=== PATIENT | female | born 1960 | race Caucasian/White ===

== ENCOUNTER 2022-07-20 13:29 | Inpatient (IN) | payer MEDICARE, OTHER ==
[2022-07-20] VITALS (21 sets, daily range): BP systolic 47–171; BP diastolic 27–114
[~2022-07-20] VITALS: Ht 167.6 cm; Wt 73.9 kg
--- NOTE | 2022-07-20 13:50 | NUR ---
BLOOD DRAWN AND SENT TO LAB
[2022-07-20] MEDS ORDERED: methylPREDNISolone SOD SUCC 125 MG/2ML VIAL IV ONE (14:00)
[2022-07-20] MEDS ORDERED: ALBUTEROL FS 2.5 MG/3 ML VIAL.NEB CONTNEB ONE (14:00)
[2022-07-20] MEDS ORDERED: Magnesium 1GM/D5W 100ML PREMIX 200 ML IV ONE (14:00)
[2022-07-20] MEDS ORDERED: IPRATROPIUM NEB FS 0.5 MG/2.5 ML AMPUL.NEB NEB ONE (14:00)
[2022-07-20] MEDS ORDERED: methylPREDNISolone SOD SUCC 125 MG/2ML VIAL ONE (14:18)
--- NOTE | 2022-07-20 14:18 | NUR ---
MOVE SHEET SUBMITTED.
[2022-07-20] MEDS ORDERED: Magnesium 1GM/D5W 100ML PREMIX 100 ML IV ONE ×2 (14:20→14:29)
[2022-07-20] MEDS ORDERED: MAGN400O6 PO (14:23)
[2022-07-20] MEDS ORDERED: ASPI-1420 PO (14:23)
[2022-07-20] MEDS ORDERED: MULT-447 PO (14:23)
[2022-07-20] MEDS ORDERED: BISA10SU11 RC (14:23)
[2022-07-20] MEDS ORDERED: ATOR40TA PO (14:23)
[2022-07-20] MEDS ORDERED: NA P133E RC (14:23)
[2022-07-20] MEDS ORDERED: POLY15DR40 EACHEYE (14:23)
[2022-07-20] MEDS ORDERED: DOCU-141 PO (14:23)
[2022-07-20] MEDS ORDERED: ASCO-495 PO (14:23)
[2022-07-20] MEDS ORDERED: ARIP15TA3 PO (14:23)
[2022-07-20] MEDS ORDERED: ALBUTEROL FS 2.5 MG/3 ML VIAL.NEB ONE (14:28)
[2022-07-20] MEDS ORDERED: IPRATROPIUM NEB FS 0.5 MG/2.5 ML AMPUL.NEB ONE (14:29)
--- NOTE | 2022-07-20 14:30 | NUR ---
X-RAY TECH AT BEDSIDE
[2022-07-20 14:44] LABS: ABG BASE EXCESS 5.1 mmol/L; ABG PCO2 90.3 mmHg (35.0-45.0); ABG PH 7.224 (7.350-7.450); ABG PO2 212.8 mmHg (75.0-100.0); COHb 1.3 % (0.5-1.5); MetHb 0.5 % (0.0-1.5); O2Hb 97.4 % (94.0-97.0); SITE, ABG Right Radial; VENT MODE, BG 12L NRB
[2022-07-20 14:52] LABS: BASOPHILS % (AUTO) 0.2 % (0.0-2.0); HEMATOCRIT 42 % (33-45); HEMOGLOBIN 14.5 g/dL (11.5-14.8); LYMPHOCYTES # (AUTO) 0.9 K/uL (0.8-4.8); LYMPHOCYTES % (AUTO) 11.4 % (20.0-44.0); MEAN CORPUSCULAR HGB CONC 34 g/dl (31.0-36.0); MEAN CORPUSCULAR VOLUME 84 fL (82-100); MONOCYTES # (AUTO) 0.6 K/uL (0.1-1.30); MONOCYTES % (AUTO) 7.1 % (2.0-12.0); NEUTROPHILS # (AUTO) 6.6 K/uL (1.8-8.9); NEUTROPHILS % (AUTO) 81.3 % (43.0-81.0); PLATELET COUNT (AUTO) 194 K/uL (150-450); RED BLOOD CELL COUNT(AUTO) 5.02 MIL/uL (4.0-5.2); WHITE BLOOD COUNT (AUTO) 8.2 K/uL (4.3-11.0)
--- NOTE | 2022-07-20 14:58 | NUR ---
SWAB FOR COVID19 SENT TO LAB
--- NOTE | 2022-07-20 15:00 | NUR ---
Patient agitated, not able to follow commands.
--- NOTE | 2022-07-20 15:09 | NUR ---
RT at bedside setting up BIPAP for patient.
--- NOTE | 2022-07-20 15:20 | NUR ---
Patient AO-2-3, more relaxed, able to follow simple commands. Patietn sating at 100% with BIPAP.
[2022-07-20 15:29] LABS: ALANINE AMINOTRANSFERASE 41 U/L (12-78); ALBUMIN 3.8 g/dL (3.4-5.0); ALKALINE PHOSPHATASE 98 U/L (46-116); ASPARTATE AMINOTRANSFERASE 35 U/L (15-37); BILIRUBIN,DIRECT 0.1 mg/dL (0.0-0.2); BILIRUBIN,TOTAL 0.5 mg/dL (0.2-1.0); CALCIUM, SERUM 8.1 mg/dL (8.5-10.1); CARBON DIOXIDE 37 mmol/L (21-32); CHLORIDE 83 mmol/L (98-107); CREATININE 0.4 mg/dL (0.6-1.3); GLUCOSE 131 mg/dL (74-106); POTASSIUM 3.9 mmol/L (3.5-5.1); SODIUM SERUM 121 mmol/L (136-145); TOTAL PROTEIN, SERUM 7.9 g/dL (6.4-8.2); UREA NITROGEN, BLOOD 10 mg/dL (7-18)
[2022-07-20 16:21] LABS: SITE, VBG Right Radial; VBG COHb 1.3 %; VBG MetHb 0.3 %; VBG O2Hb 97.7 %; VENT MODE, VBG 18/8 18 50%
--- NOTE | 2022-07-20 16:47 | NUR ---
GOT BED 256, ADMITTING MADE AWARE
[2022-07-20] MEDS ORDERED: ONDANSETRON HCL/PF 4 MG/2 ML VIAL IVP PRN (17:00)
[2022-07-20] MEDS ORDERED: ACETAMINOPHEN 325 MG TABLET PO PRN (17:00)
[2022-07-20] MEDS ORDERED: ALBUTEROL FS 2.5 MG/0.5 ML VIAL.NEB NEB PRN (17:00)
[2022-07-20] MEDS ORDERED: MORPHINE SULFATE INJ 2 MG/ML DISP.SYRIN IV PRN (17:00)
--- NOTE | 2022-07-20 17:05 | NUR ---
Report given to Mika FREDERICK/ICU, patient cleared to go to room 256
[2022-07-20 17:52] LABS: ABG BASE EXCESS 3.2 mmol/L; ABG PCO2 90.3 mmHg (35.0-45.0); ABG PO2 82.1 mmHg (75.0-100.0); COHb 0.5 % (0.5-1.5); MetHb 0.4 % (0.0-1.5); O2Hb 93.5 % (94.0-97.0); SITE, ABG Left Brachial; VENT MODE, BG ST 18/8 18 70%
--- NOTE | 2022-07-20 17:55 | NUR ---
Patient AOx4, sitting up, follows commands, requesting a bedpan.
--- NOTE | 2022-07-20 18:57 | NUR ---
RN NOTES PT ADMITTED TO BED 256 ICU. REPORT GIVEN BY ELIZABETH FREDERICK FROM ED. PT BROUGHT IN BY YONIS. SKIN IS INTACT. PT ON BIPAP DUE TO ASTHMA EXACERBATION. CO2 LEVELS ARE TRENDING UP, DR. DOMINGUEZ AWARE. PT TOLERATING BIPAP WELL. BED IN LOW POSITION, SIDERAILS UP, AND IN SEMI-RODRIGEZ POSITION. PT CURRENTLY IN BED AND LOOKS COMFORTABLE. NO FURTHER NEEDS AT THIS TIME.
--- NOTE | 2022-07-20 19:10 | NUR ---
RN OPENING NOTES PATIENT RECEIVED IN BED, AWAKE, A/O X 1. PT ON BIPAP WITH SETTING OF 18/8, RATE -22, FIO2- 60%, SATING AT 92%. NO SOB NOTED, NO S/S DISTRESS, AFEBRILE, DENIES ANY PAIN. NOTED WITH RIGHT FOREARM #20, LEFT FOREARM #20 PERIPHERAL LINE, FLUSHED WITH NS, NO S/S OF INFILTRATION NOTED. ALL SAFETY PRECAUTION PROVIDED. BED IN LOWEST POSITION, LOCKED. CALL LIGHT WITHIN REACH, SIDE RAILS UP X3. WILL CONTINUE TO MONITOR.
--- NOTE | 2022-07-20 19:20 | NUR ---
RN NOTES PT LOOKS COMFORTABLE, ALL DUE MEDICATIONS GIVEN, NO COMPLAINT OF PAIN AT THIS TIME. REPORT GIVEN TO CORINNA FREDERICK FOR CONTINUATION OF CARE.
[2022-07-20] MEDS: IPRATROPIUM NEB FS 0.5 MG/2.5 ML AMPUL.NEB NEB SCH (19:52)
[2022-07-20] MEDS: ALBUTEROL FS 2.5 MG/3 ML VIAL.NEB NEB SCH (19:52)
[2022-07-20] MEDS: methylPREDNISolone SOD SUCC 125 MG/2ML VIAL IV SCH (21:07)
[2022-07-20] MEDS: HEPARIN SODIUM, PORCINE 5000 UNITS/1 ML VIAL SQ SCH (21:09)
[2022-07-20 21:16] LABS: ABG OXYGEN SATURATION 94.1 % (92.0-98.5); ABG PCO2 99.4 mmHg (35.0-45.0); ABG PH 7.182 (7.350-7.450); ABG PO2 81.7 mmHg (75.0-100.0); AaDO2 236.8 mmHg; MetHb 0.3 % (0.0-1.5); O2Hb 92.9 % (94.0-97.0); SITE, ABG Left Radial
--- NOTE | 2022-07-20 21:19 | NUR ---
ABG DONE RN NOTIFIED
--- NOTE | 2022-07-20 21:30 | NUR ---
RN NOTES NOTIFIED HALIMA MCCLENDON REGARDING PATIENT LATEST ABG, PER ZIGGY SHE WILL SEE THE PATIENT.
--- NOTE | 2022-07-20 21:50 | NUR ---
RN NOTES HALIMA MCCLENDON AT BEDSIDE ASSESSED THE PATIENT, PT. IS NOT WAKING UP, STERNAL RUB DONE OPEN EYES A LITTLE BIT. ORDER TO INTUBATE THE PATIENT. ER DOCTOR NOTIFIED BY HER. WAITING FOR ER
[2022-07-20] MEDS ORDERED: PROPOFOL 10MG/ML 50ML 50 ML IV PRN (22:00)
--- NOTE | 2022-07-20 22:16 | NUR ---
RN NOTES @221 ETOMIDATE 10MG AND ROCURONIUM 100MG GIVEN BY CHARGE NURSE RADHA, @7512 PATIENT IS ORALLY INTUBATED BY DR. PENALOZA, SIZE 7.5 AND 23CM BY THE LIPS WITH VENT SETTING RATE- 22, TIDAL VOLUME- 450, FIO2-100%, PEEP-0. PATIENT NOTED WITH LOW SBP ON 70'S, DNP ZIGGY MCCLENDON ORDERED TO START NEOSYNEPHRINE NOTED AND CARRIED OUT.
[2022-07-20] MEDS ORDERED: PROPOFOL 100 ML ONE (22:22)
--- NOTE | 2022-07-20 22:24 | NUR ---
PT ORALLY INTUBATED BY DR LARES. 7.5 ETT SECURED AT 23CM AT THE LIP. COLOR CHANGE ON CO2 DETECTOR, BILAT BREATH SOUNDS. YVES SETTINGS AC 22, 450, 100%.
[2022-07-20] MEDS ORDERED: PHENYLEPHRINE 100 MG in IV NS 0.9% 240 ML IV PRN (22:30)
--- NOTE | 2022-07-20 22:35 | NUR ---
RN NOTES NOTIFIED PATIENT FATHER MONIKA REGARDING PATIENT LATEST STATUS, FAMILY MEMBER APPRECIATED THE CALL.
[2022-07-20] MEDS ORDERED: PHENYLEPHRINE 10 MG/ML VIAL ONE (22:37)
--- NOTE | 2022-07-20 23:00 | NUR ---
RN NOTES CARPENTER CATHETER INSERTED ASEPTICALLY, 16FR X 10CC. PROCEDURE TOLERATED WELL. DRAINING CLEAR YELLOW URINE VIA GRAVITY.
[2022-07-21] VITALS (93 sets, daily range): BP systolic 74–128; BP diastolic 47–76
[2022-07-21] MEDS: PROPOFOL 100 ML IV PRN ×6 (00:29→21:44)
--- NOTE | 2022-07-21 00:30 | NUR ---
RN/ICU- NOW PT. STARTED WAKING UP WITH TOYIN. SOFT WRIST RESTRAINTS ON,EXTREMELY AGITATED,TRYING TO SIT UP IN BED,ATTEMPTING TO RELEASE RESTRAINTS. DOES NOT FOLLOW VERBAL COMMANDS, DIPRIVAN DRIP STARTED AT 5MCG/KG/MIN. PER PROTOCOL.WILL CONTINUE TO TITRATE PER PROTOCOL.
--- NOTE | 2022-07-21 01:00 | NUR ---
RN NOTES NOTIFIED HALIMA MCCLENDON REGARDING LATEST ABG RESULT, PER ZIGGY TELL RT TO TITRATE FIO2, RT NOTIFIED FIO2 DECREASED TO 50%. PATIENT TOLERATED WELL.
[2022-07-21] MEDS: IPRATROPIUM NEB FS 0.5 MG/2.5 ML AMPUL.NEB NEB SCH ×6 (01:15→19:50)
[2022-07-21] MEDS: ALBUTEROL FS 2.5 MG/3 ML VIAL.NEB NEB SCH ×6 (01:15→19:50)
[2022-07-21] MEDS ORDERED: IV NS 0.9% 250 ML IV PRN (02:30)
[2022-07-21 02:52] LABS: BASOPHILS # (AUTO) 0.2 K/uL (0.0-0.2); EOSINOPHILS % (AUTO) 0.9 % (0.0-6.0); HEMATOCRIT 42 % (33-45); HEMOGLOBIN 13.9 g/dL (11.5-14.8); LYMPHOCYTES # (AUTO) 0.2 K/uL (0.8-4.8); LYMPHOCYTES % (AUTO) 5.2 % (20.0-44.0); MEAN CORPUSCULAR HGB CONC 33 g/dl (31.0-36.0); MEAN CORPUSCULAR VOLUME 85 fL (82-100); MONOCYTES # (AUTO) 0.1 K/uL (0.1-1.30); NEUTROPHILS # (AUTO) 3.8 K/uL (1.8-8.9); NEUTROPHILS % (AUTO) 85.8 % (43.0-81.0); PLATELET COUNT (AUTO) 212 K/uL (150-450); RED BLOOD CELL COUNT(AUTO) 4.91 MIL/uL (4.0-5.2); WHITE BLOOD COUNT (AUTO) 4.5 K/uL (4.3-11.0)
[2022-07-21 03:20] LABS: BASOPHILS % (AUTO) 5.1 % (0.0-2.0)
[2022-07-21 03:22] LABS: BILIRUBIN,TOTAL 0.5 mg/dL (0.2-1.0); CALCIUM, SERUM 8.6 mg/dL (8.5-10.1); CREATININE 0.9 mg/dL (0.6-1.3); PHOSPHORUS 4.9 mg/dL (2.5-4.9); POTASSIUM 3.8 mmol/L (3.5-5.1)
[2022-07-21 03:23] LABS: ALBUMIN 3.3 g/dL (3.4-5.0); MAGNESIUM 2.5 mg/dL (1.8-2.4); TOTAL PROTEIN, SERUM 7.1 g/dL (6.4-8.2)
[2022-07-21] MEDS: methylPREDNISolone SOD SUCC 125 MG/2ML VIAL IV SCH ×3 (05:22→20:13)
--- NOTE | 2022-07-21 07:43 | NUR ---
RN NOTES D/C PT'S DIET ORDER AND PLACED PT NPO AT THIS TIME DUE TO PT BEING INTUBATED.
[2022-07-21] MEDS ORDERED: ROCURONIUM BROMIDE 50 MG/5 ML IV ONE (08:32)
[2022-07-21] MEDS ORDERED: ETOMIDATE 2 MG/ML VIAL IV ONE (08:32)
[2022-07-21] MEDS: HEPARIN SODIUM, PORCINE 5000 UNITS/1 ML VIAL SQ SCH ×2 (08:47→20:14)
--- NOTE | 2022-07-21 09:15 | NUR ---
RN NOTES PT AGITATED. PER DR. DOMINGUEZ OK TO TITRATE TO 100 MCG/KG/HR ON PROPOFOL.
[2022-07-21] MEDS ORDERED: TERBUTALINE SULFATE 1 MG/ML VIAL SQ PRN (10:00)
[2022-07-21] MEDS ORDERED: MIDODRINE HCL (5MG) 5 MG TABLET PO PRN (10:00)
[2022-07-21] MEDS: Potassium Chloride 20 MEQ in IV D5/ 0.9% NACL 1,000 ML IV SCH ×2 (11:07→20:04)
[2022-07-21] MEDS: LEVOFLOXACIN 500 MG /D5W 100ML 100 ML IV SCH (11:29)
[2022-07-21 12:47] LABS: ABG BASE EXCESS 3.5 mmol/L; ABG OXYGEN SATURATION 99.7 % (92.0-98.5); ABG PCO2 68.6 mmHg (35.0-45.0); ABG PH 7.292 (7.350-7.450); ABG PO2 480.7 mmHg (75.0-100.0); AaDO2 163.7 mmHg; COHb 0.7 % (0.5-1.5); MetHb 0.3 % (0.0-1.5); O2Hb 98.7 % (94.0-97.0); SITE, ABG Right Radial
[2022-07-21 12:47] LABS: ABG BASE EXCESS 8.5 mmol/L; ABG OXYGEN SATURATION 92.1 % (92.0-98.5); ABG PCO2 65.9 mmHg (35.0-45.0); ABG PH 7.364 (7.350-7.450); ABG PO2 63.6 mmHg (75.0-100.0); AaDO2 218.8 mmHg; COHb 0.9 % (0.5-1.5); MetHb 0.2 % (0.0-1.5); O2Hb 91.1 % (94.0-97.0); PEEP,BG 0 cm H2O; SITE, ABG Right Radial; VT, ABG 450 mL
--- NOTE | 2022-07-21 19:25 | NUR ---
RN CLOSING NOTES PT LOOKS COMFORTABLE, NO VISUAL SIGNS OF PAIN AT THIS TIME. PT ON PROPOFOL AT 70 MCG/KG/HR AND ROSA AT 0.5 MCG/KG/HR AND PT IS RELATIVELY SEDATED WITH BP WNL. REPORT GIVEN TO SARAH FREDERICK FOR CONTINUATION OF CARE.
[2022-07-22] VITALS (48 sets, daily range): BP systolic 104–145; BP diastolic 45–79
[2022-07-22] MEDS: ALBUTEROL FS 2.5 MG/3 ML VIAL.NEB NEB SCH ×7 (01:12→23:47)
[2022-07-22] MEDS: IPRATROPIUM NEB FS 0.5 MG/2.5 ML AMPUL.NEB NEB SCH ×7 (01:13→23:47)
[2022-07-22] MEDS: PROPOFOL 100 ML IV PRN ×2 (01:46→04:55)
[2022-07-22] MEDS: Potassium Chloride 20 MEQ in IV D5/ 0.9% NACL 1,000 ML IV SCH (04:52)
[2022-07-22] MEDS: methylPREDNISolone SOD SUCC 125 MG/2ML VIAL IV SCH ×3 (05:04→21:20)
[2022-07-22 05:28] LABS: BASOPHILS % (AUTO) 0.2 % (0.0-2.0); HEMATOCRIT 43 % (33-45); HEMOGLOBIN 13.7 g/dL (11.5-14.8); LYMPHOCYTES # (AUTO) 0.6 K/uL (0.8-4.8); LYMPHOCYTES % (AUTO) 6.8 % (20.0-44.0); MEAN CORPUSCULAR HGB CONC 32 g/dl (31.0-36.0); MEAN CORPUSCULAR VOLUME 87 fL (82-100); MONOCYTES # (AUTO) 0.6 K/uL (0.1-1.30); MONOCYTES % (AUTO) 6.5 % (2.0-12.0); NEUTROPHILS # (AUTO) 8.1 K/uL (1.8-8.9); NEUTROPHILS % (AUTO) 86.5 % (43.0-81.0); PLATELET COUNT (AUTO) 252 K/uL (150-450); RED BLOOD CELL COUNT(AUTO) 4.95 MIL/uL (4.0-5.2); WHITE BLOOD COUNT (AUTO) 9.4 K/uL (4.3-11.0)
[2022-07-22 05:33] LABS: CALCIUM, SERUM 8.4 mg/dL (8.5-10.1); CREATININE 0.6 mg/dL (0.6-1.3); MAGNESIUM 2.5 mg/dL (1.8-2.4); POTASSIUM 4.7 mmol/L (3.5-5.1)
--- NOTE | 2022-07-22 06:45 | NUR ---
END OF SHIFT SUMMARY Received patient in bed sdedated on 70mcg propofol. Pt is restrained Pt had a relatively uneventful night. Vital signs stable. HR is in 50"s. Report to be endorsed to dayshift RN. No signs of distress noted.
[2022-07-22] MEDS ORDERED: DC PROPOFOL WHEN EXTUBATED XX PRN ×2 (08:00→10:00)
[2022-07-22] MEDS: HEPARIN SODIUM, PORCINE 5000 UNITS/1 ML VIAL SQ SCH ×2 (08:24→21:21)
[2022-07-22 09:00] LABS: ABG BASE EXCESS 4.3 mmol/L; ABG OXYGEN SATURATION 96.6 % (92.0-98.5); ABG PCO2 48.4 mmHg (35.0-45.0); ABG PH 7.409 (7.350-7.450); ABG PO2 85.6 mmHg (75.0-100.0); AaDO2 216.5 mmHg; COHb 0.7 % (0.5-1.5); MetHb 0.2 % (0.0-1.5); O2Hb 95.7 % (94.0-97.0); SITE, ABG Right Radial
[2022-07-22] MEDS: IV D5/ 0.9% NACL 1,000 ML IV PRN ×2 (10:38→21:20)
[2022-07-22] MEDS: LEVOFLOXACIN 500 MG /D5W 100ML 100 ML IV SCH (10:39)
--- NOTE | 2022-07-22 12:14 | NUR ---
RT NOTE: AWAKE AND ALERT PATIENT PLACED ON 50% VENTURI MASK AT 15 LPM WITH SP02=94%.
[2022-07-22 12:39] LABS: ABG OXYGEN SATURATION 91.9 % (92.0-98.5); ABG PCO2 55.4 mmHg (35.0-45.0); ABG PH 7.325 (7.350-7.450); ABG PO2 65.4 mmHg (75.0-100.0); AaDO2 228.8 mmHg; MetHb 0.1 % (0.0-1.5); O2Hb 90.9 % (94.0-97.0); SITE, ABG Right Radial; VENT MODE, BG VENTI MASK
[2022-07-22 16:35] LABS: BAND % (MANUAL) 1 % (0.0-5.0); LYMPHOCYTES % (MANUAL) 9 % (16-48); MONOCYTES % (MANUAL) 6 % (0-11.0); NEUTROPHILS % (MANUAL) 84 (42-76)
--- NOTE | 2022-07-22 19:40 | NUR ---
RN NOTES PT LOOKS COMFORTABLE, ALL DUE MEDICATIONS GIVEN, NO COMPLAINT OF PAIN AT THIS TIME. PT EXTUBATED TODAY AT 0950 AND BOTH PROPOFOL AND ROSA WAS ALSO STOPPED. UNABLE TO TRIAL PT'S OFF RESTRAINTS PT HAS THE TENDENCY TO PULL ON HER IV LINES. REPORT GIVEN TO MERCEDES FREDERICK FOR CONTINUATION OF CARE.
--- NOTE | 2022-07-22 20:28 | NUR ---
agricultural sciences professor. initial assessment. received the pt rest in bed. awake, alert. follow commands. court recording monitor showing nsr. IV LT UPPER ARM MID LINE , IVF D5NS 125 ML/H. HOB ELEVATED. FC PATENT. TOYIN SOFT WRIST RESTRAINT CHECKED AND RELEASED. NO INJURY OR REDNESS NOTED. OXYGEN VENTURI MASK.SAT 98%. NO ACUTE DISTRESS NOTED. WILL CONTINUE TO MONITOR VITALS.
--- NOTE | 2022-07-22 23:54 | NUR ---
PT PLACED ON NOC BIPAP RN NOTIFIED
[2022-07-23] VITALS (25 sets, daily range): BP systolic 109–148; BP diastolic 48–78
--- NOTE | 2022-07-23 03:10 | NUR ---
COMIC BOOK ARTIST. AM CARE GIVEN. REMAINING SAME BIPAP SETTINGS TOLERATED WELL. SAT 98%.NO ACUTE DISTRESS NOTED. FINISHING MACHINE OPERATOR AUTOMATIC SHOWING NSR. IV LT UPPER ARM MID LINE. IVF D5 NS 125 ML/H. HOB ELEVATED FC PATENT. TURN AND REPOSITION Q2H. WILL CONTINUE TO MONITOR VITALS.
[2022-07-23] MEDS: IPRATROPIUM NEB FS 0.5 MG/2.5 ML AMPUL.NEB NEB SCH ×6 (03:11→23:52)
[2022-07-23] MEDS: ALBUTEROL FS 2.5 MG/3 ML VIAL.NEB NEB SCH ×6 (03:11→23:52)
[2022-07-23] MEDS: methylPREDNISolone SOD SUCC 125 MG/2ML VIAL IV SCH ×3 (04:29→20:44)
[2022-07-23 04:32] LABS: ABG BASE EXCESS 5.7 mmol/L; ABG OXYGEN SATURATION 94.5 % (92.0-98.5); ABG PCO2 51.1 mmHg (35.0-45.0); ABG PH 7.409 (7.350-7.450); ABG PO2 71.6 mmHg (75.0-100.0); AaDO2 154.8 mmHg; COHb 0.9 % (0.5-1.5); MetHb 0.3 % (0.0-1.5); O2Hb 93.4 % (94.0-97.0); SITE, ABG Right Radial
--- NOTE | 2022-07-23 06:05 | NUR ---
PT OFF NOC BIPAP PLACED ON VENTI MASK 15L, 50%
[2022-07-23] MEDS: IV D5/ 0.9% NACL 1,000 ML IV PRN ×3 (07:33→23:50)
--- NOTE | 2022-07-23 09:19 | NUR ---
DR. PAUL SEEN PATIENT.
--- NOTE | 2022-07-23 09:40 | NUR ---
PATIENT TOLERATED BEDSIDE SWALLOW SCREENING AND PASSED IT WITHOUT DIFFICULTY.
[2022-07-23] MEDS: HEPARIN SODIUM, PORCINE 5000 UNITS/1 ML VIAL SQ SCH ×2 (09:50→20:44)
[2022-07-23] MEDS: LEVOFLOXACIN 500 MG /D5W 100ML 100 ML IV SCH (11:16)
--- NOTE | 2022-07-23 18:52 | NUR ---
PATIENT NO SSX OF ACUTE DISTRESS NOTED, ABLE TO MAKE NEEDS KNOWN AT THIS TIME, ALL NEEDS ATTENDED. PATIENT ROUNDING DONE BY HEDIS REVIEW NURSE PRN/HOURLY. WILL ENDORSE TO NEXT SHIFT RN.
--- NOTE | 2022-07-23 22:32 | NUR ---
RT NOTE PT REFUSING NOC BIPAP AT THIS TIME. OTONIEL SMITH NOTIFIED. PT REMAINS ON NASAL CANNULA @ 3LPM. NO SOB NOTED. WILL CONTINUE TO MONITOR CLOSELY.
[2022-07-24] VITALS (21 sets, daily range): BP systolic 106–164; BP diastolic 60–89
[2022-07-24] MEDS: ALBUTEROL FS 2.5 MG/3 ML VIAL.NEB NEB SCH ×6 (04:29→23:16)
[2022-07-24] MEDS: IPRATROPIUM NEB FS 0.5 MG/2.5 ML AMPUL.NEB NEB SCH ×6 (04:29→23:16)
[2022-07-24] MEDS: methylPREDNISolone SOD SUCC 125 MG/2ML VIAL IV SCH ×3 (04:36→20:43)
--- NOTE | 2022-07-24 06:22 | NUR ---
END OF SHIFT SUMMARY Pt received in bed. She is alert and oriented x 4. She refuses many of the nursing interventions and will only cooperate atfter limits are set with her. Pt was able to sit on the chair for about 30 minutes. Pt requested to return to bed. Pt had an otherwise uneventful shift. Vital signs stable at the change of shift. Report endorsed to day shift RN.
[2022-07-24] MEDS: HEPARIN SODIUM, PORCINE 5000 UNITS/1 ML VIAL SQ SCH ×2 (08:30→20:44)
[2022-07-24] MEDS: LEVOFLOXACIN (250MG) 250 MG TABLET PO SCH (10:20)
[2022-07-24] MEDS: IV D5/ 0.9% NACL 1,000 ML IV PRN (17:27)
--- NOTE | 2022-07-24 17:46 | NUR ---
PATIENT TRANSFERRED TO [facility] ROOM 106. RN HANNAH TO CONTINUE PLAN OF CARE.
--- NOTE | 2022-07-24 19:10 | NUR ---
RN OPENING NOTES PATIENT RECEIVED IN BED, AWAKE, A/O X 4. ON NASAL CANULA @ 3LPM SATING AT 92%. RESPIRATORY EVEN AND UNLABORED, NO SOB NOTED, NO S/S DISTRESS, AFEBRILE, NO S/S OF DISTRESS NOTED. NOTED WITH CONSUELO MIDLINE, RIGHT FOREARM #20 AND LEFT FOREARM # 20 PERIPHERAL LINE, FLUSHED WITH NS, NO S/S OF INFILTRATION NOTED. RUNNING WITH D5NS @ 125 ML/HR. CARPENTER CATHETER PATENT INTACT DRAINING WITH CLEAR YELLOW URINE OUTPUT. ALL SAFETY PRECAUTION PROVIDED. BED IN LOWEST POSITION, LOCKED. BED ALARM ARMED. CALL LIGHT WITHIN REACH, SIDE RAILS UP X3. WILL CONTINUE TO MONITOR.
--- NOTE | 2022-07-24 20:57 | NUR ---
PT REFUSING BIPAP. SAT IS 83-[address] PT ON VENTI MASK 40% 12LPM. INFORMED PT THAT IF SPO2 88-92% CANNOT BE MAINTAINED, MAY NEED TO BE PLACED ON BIPAP. OTONIEL IVEY.
[2022-07-25] VITALS: BP 172/89
--- NOTE | 2022-07-25 00:15 | NUR ---
RN NOTES PATIENT NOTED WITH BP- 172/89, HR- 99, NOTIFIED HALIMA MCCLENDON WITH NEW ORDER CLONIDINE 0.1MG PO Q8HRS FOR SBP GREATER THAN 155 NOTED AND CARRIED OUT.
[2022-07-25] MEDS: CLONIDINE HCL 0.1 MG TABLET PO PRN (00:28)
[2022-07-25] MEDS: IV D5/ 0.9% NACL 1,000 ML IV PRN ×3 (01:40→22:59)
[2022-07-25] MEDS: ALBUTEROL FS 2.5 MG/3 ML VIAL.NEB NEB SCH ×6 (03:51→23:48)
[2022-07-25] MEDS: IPRATROPIUM NEB FS 0.5 MG/2.5 ML AMPUL.NEB NEB SCH ×6 (03:51→23:48)
--- NOTE | 2022-07-25 04:00 | NUR ---
RN Notes Received report on patient. Patient stable. Saturating well.
[2022-07-25] MEDS: methylPREDNISolone SOD SUCC 125 MG/2ML VIAL IV SCH ×3 (05:38→22:45)
--- NOTE | 2022-07-25 06:29 | NUR ---
RN Closing Notes Pt in bed, sitting upright, wearing venturi mask. No SOB noted. No s/sx of respiratory distress noted. All orders carried out. All needs met. Pt kept clean and dry. Will endorse to oncoming shift for SHOAIB.
--- NOTE | 2022-07-25 07:15 | NUR ---
jay rn opening notes: Pt in bed, sitting upright, wearing venturi mask. No SOB noted. No s/sx of respiratory distress noted. bed in low and locked position, call light within reach, iv running D5ns at 60 ml/hr, will continue to monitor
[2022-07-25 08:00] VITALS: BP 163/88
[2022-07-25] MEDS: HEPARIN SODIUM, PORCINE 5000 UNITS/1 ML VIAL SQ SCH ×2 (09:10→22:47)
[2022-07-25] MEDS ORDERED: PRED50TA PO (10:24)
[2022-07-25] MEDS ORDERED: LEVO250T59 PO (10:24)
[2022-07-25 10:43] LABS: CALCIUM, SERUM 8.3 mg/dL (8.5-10.1); CREATININE 0.4 mg/dL (0.6-1.3); POTASSIUM 3.8 mmol/L (3.5-5.1)
[2022-07-25 10:49] LABS: ALBUMIN 2.8 g/dL (3.4-5.0); BILIRUBIN,TOTAL 0.5 mg/dL (0.2-1.0); TOTAL PROTEIN, SERUM 6.2 g/dL (6.4-8.2)
[2022-07-25] MEDS: LEVOFLOXACIN (250MG) 250 MG TABLET PO SCH (11:37)
[2022-07-25 12:00] VITALS: BP 132/107
--- NOTE | 2022-07-25 15:40 | NUR ---
RN NOTES: SPOKE TO dr CAMARGO PT VERBALIZED SHE CAN NOT BREATH, O2 SAT 82% PLACED HER ON 15 LITER VIA NON REBREATHER , O2 SAT BECOME 92% WITH ORDER OF STAT ABG AND CXR, ORDER NOTED AND CARRIED OUT
[2022-07-25 15:58] LABS: ABG BASE EXCESS 6.4 mmol/L; ABG OXYGEN SATURATION 99.6 % (92.0-98.5); ABG PH 7.353 (7.350-7.450); ABG PO2 313.8 mmHg (75.0-100.0); AaDO2 336.2 mmHg; COHb 0.6 % (0.5-1.5); MetHb 0.3 % (0.0-1.5); O2Hb 98.7 % (94.0-97.0); SITE, ABG Right Radial
[2022-07-25 16:00] VITALS: BP 160/96
--- NOTE | 2022-07-25 19:00 | NUR ---
OTONIEL notes: pt complained of chest pain , HR 130 paged the transportation job titles bacteriology research assistant, went back to pt he verbalized his chest pain resolved by itself Addendum: 07/25/22 at 1939 by OSMAN HOLT RN no chest pain, wrong pt
--- NOTE | 2022-07-25 19:32 | NUR ---
RN Closing Notes Pt in bed, sitting upright, wearing venturi mask. No SOB noted. No s/sx of respiratory distress noted. All orders carried out. All needs met. Pt kept clean and dry.endorsed to second shift supervisor for SHOAIB.
[2022-07-25 20:00] VITALS: BP 142/80
--- NOTE | 2022-07-25 20:00 | NUR ---
RECEIVED PT IN VENTURI MASK AT 10MPL, SOB WITH EXERTION, DESATURATES IF O2 MASK NOT IN PLACED, DISCUSSED PLAN OF CARE WITH PATIENT AND INFORMED THAT SHE HAS AN ORDER FOR NOCTURNAL BIPAP AND DR DOMINGUEZ HIGHLY RECOMMEND TO USE THE BIPAP AT NIGHT DUE TO THE ABGS RESULTS, PATIENT STRONGLY REFUSED, AND STATED THAT SHE WANTS TO LEAVE THE HOSPITAL, AGAIN ENCOURAGED HER AND POINTED PRONS AND CONS, SHE STILL REFUSED, WILL CONT TO MONITOR.
--- NOTE | 2022-07-25 20:00 | NUR ---
PATIENT IN AMIODARONE IV DRIP INFUSING AT 1MG AT THIS TIME, AFIB UNCONTROLLED IN TELE MONITOR HR IN 120-130S AT THIS TIME, 2 SONS AT BEDSIDE, ANSWERED ALL THEIR QUESTIONS.
--- NOTE | 2022-07-25 23:30 | NUR ---
ATTEMPTED TO PUT PATIENT ON NOCTURNAL BIPAP, RT AT BEDSIDE AND EXPLAINED TO PATIENT THE IMPORTANCE OF USING BIPAP AND HIGHLY ENCOURAGED BY SWIMMING POOL SERVICE TECHNICIAN, AGAIN RISKS AND BENEFITS EXPLAINED TO PATIENT, AND POINT THAT IN ORDER TO AVOID INTUBATION IS HIGHLY RECOMMEND TO USE THE BIPAP, SHE REFUSED AGAIN AND SHE STATED "I DON'T WANT ANY TUBE IN MY THROAT" TRIED TO DISCUSSED CODE STATUS WITH PATIENT SINCE SHE DOESN'T WANT INTUBATION, AND PER HER SHE WILL BE OK AND DOES NOT WANT TO DISCUSS IRASEMA AT THIS TIME, ZIGGY MCCLENDON COIL WINDING SUPERVISOR AWARE.
--- NOTE | 2022-07-26 00:05 | NUR ---
pt refusing bipap noc at this time Addendum: 07/26/22 at 0620 by BRUCE DAMIAN RT Amended: Links added.
[2022-07-26] MEDS: ALBUTEROL FS 2.5 MG/3 ML VIAL.NEB NEB SCH ×6 (03:38→23:56)
[2022-07-26] MEDS: IPRATROPIUM NEB FS 0.5 MG/2.5 ML AMPUL.NEB NEB SCH ×6 (03:38→23:56)
[2022-07-26 04:00] VITALS: BP 149/74
[2022-07-26] MEDS: methylPREDNISolone SOD SUCC 125 MG/2ML VIAL IV SCH ×3 (05:17→22:57)
[2022-07-26 05:50] LABS: CALCIUM, SERUM 8.2 mg/dL (8.5-10.1); CREATININE 0.5 mg/dL (0.6-1.3); POTASSIUM 3.3 mmol/L (3.5-5.1)
[2022-07-26 05:56] LABS: ALBUMIN 2.4 g/dL (3.4-5.0); BILIRUBIN,TOTAL 0.4 mg/dL (0.2-1.0); TOTAL PROTEIN, SERUM 5.5 g/dL (6.4-8.2)
--- NOTE | 2022-07-26 06:21 | NUR ---
END OF SHIFT, PATIENT ASLEEP, AROUSES TO TACTILE STIMULI, ON VENTURI MASK AT 10MLP, SOB WITH EXERTION, NSR IN TELE MONITOR, PATIENT REFUSED BIPAP LAST NIGHT DESPITE EDUCATION AND ENCOURAGEMENT, ZIGGY MCCLENDON PAINTING MACHINE OPERATOR AWARE, OTHERWISE MAINTAINED O2 SAT LEVEL >94%, BREATHING TX ORDERED, CALL LIGHT W/I REACH, BED ALARM ON, S/R OF BED P X2, WILL ENDORSE CONTINUITY OF CARE TO ONCOMING NURSE.
[2022-07-26] MEDS: ALBUTEROL FS 2.5 MG/0.5 ML VIAL.NEB NEB PRN ×2 (07:39→08:12)
--- NOTE | 2022-07-26 07:41 | NUR ---
[facility] RN NOTE PATIENT IN BED ON 10 L VENTURI MASK ,AND NOW ON BREATHING TX, ORDERED, ALERT ORIENTED, ON TELE MONITOR SR HR 80 , CONSUELO MID LINE IN PLACE,ON IVF ORDERED , AT AT THIS TIME, WANTS TO GO HOME, WILL INFORM MD , BED IN LOWEST AND LOWER POSITION , SAFETY MEASURE IMPLEMENTED WILL MONITOR
[2022-07-26 08:00] VITALS: BP 160/96
[2022-07-26] MEDS: ENSURE ENLIVE 237 ML LIQUID (VANILLA) PO SCH (08:42)
[2022-07-26] MEDS: HEPARIN SODIUM, PORCINE 5000 UNITS/1 ML VIAL SQ SCH ×2 (08:42→22:58)
--- NOTE | 2022-07-26 08:44 | NUR ---
SUPERVISOR PARTICLEBOARD NOTE PATIENT STRONGLY REFUSED TO HAVE HEPARIN DESPITE EXPLANATION ,OFFERED TO HER X3 STILL REFUSED, WILL F\U
[2022-07-26 08:59] LABS: ABG BASE EXCESS 7.7 mmol/L; ABG OXYGEN SATURATION 93.3 % (92.0-98.5); ABG PCO2 53.6 mmHg (35.0-45.0); ABG PH 7.421 (7.350-7.450); ABG PO2 65.4 mmHg (75.0-100.0); AaDO2 230.8 mmHg; COHb 1.1 % (0.5-1.5); MetHb 0.2 % (0.0-1.5); O2Hb 92.1 % (94.0-97.0); SITE, ABG Right Radial; VENT MODE, BG VENTI MASK 50%
[2022-07-26] MEDS: CLONIDINE HCL 0.1 MG TABLET PO PRN (09:00)
--- NOTE | 2022-07-26 09:00 | NUR ---
jay rn note abg done reported result to dr renee no new order given at this time
--- NOTE | 2022-07-26 09:02 | NUR ---
COLLECTION SYSTEMS CONSULTANT NOTE ABG DONE ORDERED BY RT ALSO BP160/96 CATAPRES 0.1MG PO GIVEN ORDERED, WILL F\U
--- NOTE | 2022-07-26 09:22 | NUR ---
[facility] RN NOTE REPORTED TO DR DOMINGUEZ THAT PATIENT REFUSED BIPAP AT NIGHT AND HEPARIN IN AM , NO NEW ORDER GIVEN AT THIS TIME
--- NOTE | 2022-07-26 10:39 | NUR ---
CLOTH BRUSHING AND SUEDING SUPERVISOR NOTE REPORTED TO DR WILKINSON THAT PATIENT REFUSED BIPAP AT NIGHT AND WANTS TO GO HOME ALSO NOTIFIED THAT REFUSED HEPATIN SQ ,PER DR WILKINSON OK TO PLACE ON 4LNC AND MONITOR SATURATION
[2022-07-26] MEDS: LEVOFLOXACIN (250MG) 250 MG TABLET PO SCH (10:53)
[2022-07-26] MEDS ORDERED: POTASSIUM CHLORIDE 20 MEQ POWDER PACKET NG SCH (11:00)
[2022-07-26] MEDS: IV D5/ 0.9% NACL 1,000 ML IV PRN (11:01)
[2022-07-26 12:07] VITALS: BP 135/85
--- NOTE | 2022-07-26 13:00 | NUR ---
jay rn note having lunch ate 25% of food aspiration precaution observed
--- NOTE | 2022-07-26 14:42 | NUR ---
jay rn note rounds made , all needs attended, turn reposition, keep clean dry call light within reach
[2022-07-26] MEDS: IV NS 0.9% 1,000 ML IV SCH (15:27)
--- NOTE | 2022-07-26 15:48 | NUR ---
jay rn note patient strongly refused to use dvt pumps despite explanation , will f\u
[2022-07-26 16:00] VITALS: BP 138/91
--- NOTE | 2022-07-26 17:30 | NUR ---
jay rn note noted patient desaturated 78 % and noted wheezing upon auscultation rt at bedside change from 4lnc to venturi mask 50% 15l and saturation at 88-90% keep hob elevated will monitor closely
--- NOTE | 2022-07-26 17:56 | NUR ---
jay koch note recheck saturation now is 9091% will monitor closely Addendum: 07/26/22 at 1809 by HILARY FIGUEROA RN rechecked 90-91% saturation
--- NOTE | 2022-07-26 18:09 | NUR ---
jay rn note dr perez notified that patient become desaturation and noted wheezing upon auscultation rt at bedside and placed on venturi MASK 15L50% AND SATURATION NOW 90-91% STATED TO INFORM TO DR DOMINGUEZ , CALLED TO DR DOMINGUEZ AWAITING FOR RETURN ,CALL WILL F\U
--- NOTE | 2022-07-26 18:20 | NUR ---
CONTROL AND RECOVERY COMBAT RESCUE NOTE DR DOMINGUEZ CALLED BACK WITH ORDER ABG IN 15 MIN ORDER CARRIED OUT WILL F\U
[2022-07-26 18:35] LABS: ABG BASE EXCESS 14.9 mmol/L; ABG OXYGEN SATURATION 90.9 % (92.0-98.5); ABG PH 7.505 (7.350-7.450); ABG PO2 55.9 mmHg (75.0-100.0); COHb 0.9 % (0.5-1.5); MetHb 0.2 % (0.0-1.5); O2Hb 89.9 % (94.0-97.0); SITE, ABG Right Radial; VENT MODE, BG VENTI MASK 50%
--- NOTE | 2022-07-26 18:37 | NUR ---
[facility] RN NOTE PER DR ALBERTO AGUILAR DONE ORDERED BY RT WILL F\U
--- NOTE | 2022-07-26 18:46 | NUR ---
TELE MECHANIC INDUSTRIAL TRUCK NOTE PATIENT O2 SAT 95% ON 15L 50% VENTURI MASK. PATIENT A/OX4. HOB ON SEMI RODRIEGZ POSITION, NO RESPIRATORY DISTRESS NOTED.
--- NOTE | 2022-07-26 19:02 | NUR ---
KAT[facility]N RN NOTE DR FOUNTAIN CALLED BACK NOTIFIED ABG RESULT ORDERED NO CHANGE WITH NOCTURNAL BIPAP IF DISTRESS TO ICU BIPAP 22\10
[2022-07-26 20:00] VITALS: BP 152/74
--- NOTE | 2022-07-26 20:00 | NUR ---
[facility] RN NOTE PT IN BED AWAKE. A/O X 3, ON VENTURI MASK O2 15 L 50% FIO2. SATURATING 97%. NO DISTRESS OR DISCOMFORT NOTED. DENIES PAIN. ON TELE SR WITH PVC HR 85. F/C INTACT AND PATENT DRAINING YELLOWISH COLOR URINE. CONSUELO MIDLINE INTACT AND PATENT INFUSING NS AT 70 ML/HR, NO S/S OF INFILTRATION NOTED. SL RFA INTACT AND PATENT. KEPT HER DRY AND CLEAN. ALL NEEDS ATTENDED. VSS. CONTINUE TO MONITOR HER.
[2022-07-27] VITALS: BP 135/76
[2022-07-27] MEDS: ALBUTEROL FS 2.5 MG/3 ML VIAL.NEB NEB SCH ×6 (03:21→23:15)
[2022-07-27] MEDS: IPRATROPIUM NEB FS 0.5 MG/2.5 ML AMPUL.NEB NEB SCH ×6 (03:21→23:15)
[2022-07-27 04:00] VITALS: BP 155/80
[2022-07-27] MEDS: methylPREDNISolone SOD SUCC 125 MG/2ML VIAL IV SCH ×3 (05:06→21:37)
[2022-07-27] MEDS: IV NS 0.9% 1,000 ML IV SCH ×2 (06:02→18:24)
--- NOTE | 2022-07-27 06:45 | NUR ---
[facility] RN NOTE PT IN BED AWAKE. NO DISTRESS OR DISCOMFORT NOTED. REMAIN ON VERTURI MASK 15L O2 SAT 98%. ON TELE SR WITH PVC HR 82. IVF NS INFUSING AT 70 ML/HR. ALL NEEDS ATTENDED. WILL ENDORSE TO DAY SHIFT NURSE FOR CONTINUE TO CARE.
[2022-07-27 07:33] LABS: CALCIUM, SERUM 8.3 mg/dL (8.5-10.1); CREATININE 0.4 mg/dL (0.6-1.3); POTASSIUM 3.4 mmol/L (3.5-5.1)
[2022-07-27 07:39] LABS: ALBUMIN 2.3 g/dL (3.4-5.0); BILIRUBIN,TOTAL 0.5 mg/dL (0.2-1.0); TOTAL PROTEIN, SERUM 5.2 g/dL (6.4-8.2)
[2022-07-27 08:00] VITALS: BP_SYST 122; BP_SYST 178; BP_DIAS 60; BP_DIAS 81
[2022-07-27] MEDS: ENSURE ENLIVE 237 ML LIQUID (VANILLA) PO SCH (08:15)
[2022-07-27] MEDS: HEPARIN SODIUM, PORCINE 5000 UNITS/1 ML VIAL SQ SCH (08:22)
--- NOTE | 2022-07-27 08:38 | NUR ---
PATIENT REFUSED THE HEPARIN SQ. SHE STATED THAT SHE DOES NOT WANT IT. I WILL LET DR. DOMINGUEZ KNOW
[2022-07-27] MEDS ORDERED: POTASSIUM CHLORIDE 20 MEQ POWDER PACKET PO ONE (10:00)
[2022-07-27] MEDS: LEVOFLOXACIN (250MG) 250 MG TABLET PO SCH (10:31)
[2022-07-27 12:00] VITALS: BP 157/87
[2022-07-27 16:00] VITALS: BP 117/75
--- NOTE | 2022-07-27 16:00 | NUR ---
SINCE MORNING PATIENT IS ASKING TO LEAVE AMA, I INFORMED THE LAY UP OPERATOR THEY SAID SHE IS ON MASK 15 LITERS SHE CANNOT GO, AFTER FEW MINUTES I HAD A CALL FORM THE FACILITY THAT PATIENT CAME FROM THEY SPOKE TO PATIENT AND TOLD HER IF SHE GO AMA THEY WILL NOT ACCEPT HER. DR. DOMINGUEZ MUST DC THE PATIENT THEY WILL TAKE THE PATIENT IF SHE IS DISCHARGED BY THE DOCTOR.
--- NOTE | 2022-07-27 19:13 | NUR ---
RN CLOSING NOTE PT IN BED AWAKE. NO DISTRESS OR DISCOMFORT NOTED. REMAIN ON VERTURI MASK 15L O2 SAT 97%. IVF NS INFUSING AT 70 ML/HR. ALL NEEDS ATTENDED. WILL ENDORSE TO THE FREIGHT BROKER AGENT NURSE FOR CONTINUE TO CARE.
--- NOTE | 2022-07-27 19:20 | NUR ---
RN OPENING NOTE RECEIVED PATIENT IN BED, AWAKE, AAO X4, O2 VIA VERTURI MASK AT 15 L WITH O2 SAT OF 97%. NO DISTRESS OR DISCOMFORT NOTED. ON TELE MONITOR SHOWING SR 83 WITH PVC'S AND PAC'S. IV ACCESS ON CONSUELO MIDLINE INFUSING NS AT 70 ML/HR AND RFA #20G S/L. CARPENTER CATHETER IN PLACE, INTACT AND PATENT. SAFETY MEASURES IN PLACE: BED LOCKED AND IN LOWEST POSITION, SIDE RAILS UP X3, CALL LIGHT WITHIN REACH.
--- NOTE | 2022-07-27 19:30 | NUR ---
PT REFUSED BREATHING TX AND NOC BIPAP, CHARGE NURSE TAMEKA AWARE.
[2022-07-27 20:00] VITALS: BP 144/64
[2022-07-28] VITALS: BP 134/68
[2022-07-28] MEDS: IPRATROPIUM NEB FS 0.5 MG/2.5 ML AMPUL.NEB NEB SCH ×6 (03:28→23:20)
[2022-07-28] MEDS: ALBUTEROL FS 2.5 MG/3 ML VIAL.NEB NEB SCH ×6 (03:28→23:20)
[2022-07-28 04:00] VITALS: BP 149/82
[2022-07-28] MEDS: methylPREDNISolone SOD SUCC 125 MG/2ML VIAL IV SCH ×3 (05:00→21:52)
--- NOTE | 2022-07-28 06:09 | NUR ---
RN NOTE PATIENT REFUSED MORNING LABS
--- NOTE | 2022-07-28 06:55 | NUR ---
RN CLOSING NOTE PATIENT IN BED, AWAKE, AAO X4, O2 VIA VENTURI MASK AT 15 L WITH O2 SAT OF 97%. NO DISTRESS OR DISCOMFORT NOTED. ON TELE MONITOR SHOWING SR 83 WITH PVC'S AND PAC'S. IV ACCESS ON CONSUELO MIDLINE INFUSING NS AT 70 ML/HR AND RFA #20G S/L. CARPENTER CATHETER IN PLACE, INTACT AND PATENT WITH URINE OUTPUT OF 2300 ML. SAFETY MEASURES MAINTAINED: BED LOCKED AND IN LOWEST POSITION, SIDE RAILS UP X3, CALL LIGHT WITHIN REACH, BED ALARM ON.
--- NOTE | 2022-07-28 07:56 | NUR ---
ADMINISTRATIVE PROGRAM SPECIALIST OPENING NOTE RECEIVED PATIENT IN BED, AWAKE, AAO X4, O2 VIA VENTURI MASK AT 15 L WITH O2 SAT OF 97%. NO COMPALINTS OF PAIN OR DISCOMFORT NOTED AT THIS TIME. ON TELE MONITOR SHOWING SR 87. IV ACCESS ON CONSUELO MIDLINE AND RFA #20G S/L. IV INTACT, PATENT AND FLUSHING WELL. CARPENTER CATHETER IN PLACE, INTACT AND PATENT WITH YELLOW URINE OUTPUT. ALL SAFETY MEASURES MAINTAINED: BED LOCKED AND IN LOWEST POSITION, SIDE RAILS UP X3, CALL LIGHT WITHIN REACH, BED ALARM ON.
[2022-07-28 08:00] VITALS: BP 146/74
[2022-07-28] MEDS: ENSURE ENLIVE 237 ML LIQUID (VANILLA) PO SCH (09:12)
[2022-07-28] MEDS: IV NS 0.9% 1,000 ML IV SCH (09:24)
[2022-07-28 09:30] LABS: ABG BASE EXCESS 7.3 mmol/L; ABG OXYGEN SATURATION 89.1 % (92.0-98.5); ABG PCO2 50.8 mmHg (35.0-45.0); ABG PH 7.433 (7.350-7.450); ABG PO2 55.3 mmHg (75.0-100.0); AaDO2 113.4 mmHg; COHb 1.2 % (0.5-1.5); MetHb 0.3 % (0.0-1.5); O2Hb 87.8 % (94.0-97.0); SITE, ABG Right Radial; VENT MODE, BG nasal cannula
[2022-07-28] MEDS: LEVOFLOXACIN (250MG) 250 MG TABLET PO SCH (10:38)
--- NOTE | 2022-07-28 10:39 | NUR ---
RN NOTE NOTIFIED THAT PT REFUSED LEVOFLOXACIN. PROVIDED EDUCATION ABOUT BENEFITS.PT STILL REFUSED. AWARE
[2022-07-28 12:00] VITALS: BP 130/75
--- NOTE | 2022-07-28 12:27 | NUR ---
rn note spoke with pt's father. 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 pt needs high level oxygen. pt wants to go AMA.discussed with pt father.pt father agreeable to stay
--- NOTE | 2022-07-28 12:30 | NUR ---
RN NOTE PT REFUSED SOLUMEDROL. EXPLAINED BENEFITS. PT STILL REFUSED. AND AWARE
--- NOTE | 2022-07-28 12:45 | NUR ---
RN NOTE PER REMOVE CARPENTER CATHETHER
[2022-07-28] MEDS: IV NS 0.9% 1,000 ML IV PRN (15:06)
[2022-07-28 16:00] VITALS: BP 142/59
--- NOTE | 2022-07-28 19:15 | NUR ---
RN NOTE RECEIVED PT IN BED, AAO X 3-4, SATURATION AT 93% ON 3L VIA NC, SR ON THE MONITOR, HR IS 85. IV LINE AT RAC 20G PATENT AND FLUSHING WELL. CARPENTER CATH DRAINING TO A CLEAR, YELLOW OUTPUT. SAFETY MEASURES IN PLACE, BED IS LOCKED AND AT LOWEST POSITION, CALL LIGHT WITHIN REACH OF PATIENT. WILL CONT TO MONITOR AND REASSESS.
--- NOTE | 2022-07-28 19:18 | NUR ---
PAINTER HAND CLOSING NOTE PATIENT IN BED, AWAKE, AAO X4, O2 NASAL CANNULA 3-4 L WITH O2 SAT OF 96%. NO COMPLAINTS OF PAIN OR DISCOMFORT NOTED AT THIS TIME. ON TELE MONITOR SHOWING SR 87 WITH COUPLET PVC. IV ACCESS ON CONSUELO MIDLINE. IV INTACT, PATENT AND FLUSHING WELL. ALL SAFETY MEASURES MAINTAINED: BED LOCKED AND IN LOWEST POSITION, SIDE RAILS UP X3, CALL LIGHT WITHIN REACH, BED ALARM ON.
[2022-07-28 20:00] VITALS: BP 128/83
[2022-07-28] MEDS: ARIPIPRAZOLE 5 MG TABLET PO SCH (21:52)
[2022-07-29] VITALS: BP 130/75
--- NOTE | 2022-07-29 00:58 | NUR ---
RN NOTE REPORT GIVEN TO ROSALEE FREDERICK FOR CONTINUATION OF CARE
--- NOTE | 2022-07-29 01:00 | NUR ---
PIE MAKER NOTE RECEIVED TRANSFER OF CARE REPORT FROM OTONIEL BLEVINS. PATIENT SLEEPING IN BED, ALERT/ORIENTED X 4. PATIENT ON 3 LPM OF O2 VIA NASAL CANNULA, PER RN PATIENT REFUSED NOCTURNAL BIPAP. IV ACCESS CONSUELO ML INTACT AND INFUSING NS @ 70 ML/HR. SAFETY MEASURES IN PLACE: CALL LIGHT WITHIN REACH, SIDE RAILS UP X 3, BED LOCKED IN LOWEST POSITION, HOB ELEVATED, BED ALARM ON. WILL CONTINUE TO MONITOR PATIENT
[2022-07-29] MEDS: ALBUTEROL FS 2.5 MG/3 ML VIAL.NEB NEB SCH ×6 (03:30→23:04)
[2022-07-29] MEDS: IPRATROPIUM NEB FS 0.5 MG/2.5 ML AMPUL.NEB NEB SCH ×6 (03:30→23:04)
[2022-07-29 04:00] VITALS: BP 146/102
[2022-07-29] MEDS: IV NS 0.9% 1,000 ML IV PRN ×2 (05:35→18:22)
[2022-07-29] MEDS: methylPREDNISolone SOD SUCC 125 MG/2ML VIAL IV SCH ×3 (05:48→15:25)
--- NOTE | 2022-07-29 06:58 | NUR ---
STEM SHAPER CLOSING NOTE PATIENT SLEEPING IN BED, ALERT/ORIENTED X 4, PT ABLE TO MAKE NEEDS KNOWN. PATIENT STABLE ON 3 LPM OF O2 VIA NASAL CANNULA, NO S/S OF DISTRESS OR SOB NOTED, BREATHING EVEN AND UNLABORED, SOME WHEEZING WHEN CHANGING PATIENT. PATIENT REFUSED NOCTURNAL BIPAP. PATIENT ON EXTERNAL CLINICAL CYTOGENETICS DIRECTOR READING SINUS RHYTHM, HR: 86. MEDICATIONS GIVEN ORDERED, PT NEEDS MET THROUGHOUT SHIFT. IV ACCESS ON RFA #22G INTACT AND SALINE LOCKED, CONSUELO MIDLINE INTACT AND INFUSING NS @ 70 ML/HR. SAFETY MEASURES IN PLACE: CALL LIGHT WITHIN REACH, SIDE RAILS UP X 3, BED LOCKED IN LOWEST POSITION, BED ALARM ON. WILL ENDORSE TO DAYSHIFT RN FOR CONTINUITY OF CARE
[2022-07-29 08:00] VITALS: BP 132/86
[2022-07-29] MEDS: ENSURE ENLIVE 237 ML LIQUID (VANILLA) PO SCH (08:23)
[2022-07-29] MEDS: LEVOFLOXACIN (250MG) 250 MG TABLET PO SCH (10:48)
--- NOTE | 2022-07-29 10:48 | NUR ---
ICU/RN PT REFUSES PO ABX
[2022-07-29 12:00] VITALS: BP 145/78
[2022-07-29 16:00] VITALS: BP 127/68
--- NOTE | 2022-07-29 18:42 | NUR ---
RN NOTE PT OFF TELE MONITOR, REFUSING TO BE TOUCHED TO FIX LEADS. UNABLE TO HAVE READING ON TELE MONITOR AT THIS TIME.
--- NOTE | 2022-07-29 19:30 | NUR ---
BROMINATION EQUIPMENT OPERATOR OPENING NOTES - RECEIVED PATIENT SLEEPING. BREATHING EVEN AND NON-LABORED. SYMMETRICAL RISE AND FALL OF CHEST NOTED. NOT IN APPARENT DISTRESS. NO S/S OF PAIN AT THIS TIME. TELE MONITORING ON STAND BY. HAS LEFT UPPER ARM MIDLINE WITH NS RUNNING AT 70 ML/HR. NO S/S OF INFILTRATION NOTED. SAFETY PRECAUTIONS IN PLACE: BED LOCKED AND IN LOW POSITION, SIDE RAILS UP X2, CALL LIGHT WITHIN REACH. WILL CONTINUE PLAN OF CARE. Addendum: 07/29/22 at 2006 by September MARCELLE FREDERICK ON 3LPM VIA NASAL CANULA
[2022-07-29 20:00] VITALS: BP 124/74
[2022-07-29] MEDS: ARIPIPRAZOLE 5 MG TABLET PO SCH (21:04)
--- NOTE | 2022-07-29 21:10 | NUR ---
SATURATING 86-90% AT 3LPM VIA NASAL CANULA. DENIES SOB OR . HOB ELEVATED, INCREASED O2 TO 4LPM. SPO2 91%, WILL CONTINUE TO MONITOR.
[2022-07-30] VITALS: BP 121/74
[2022-07-30] MEDS: ALBUTEROL FS 2.5 MG/3 ML VIAL.NEB NEB SCH ×3 (03:23→11:10)
[2022-07-30] MEDS: IPRATROPIUM NEB FS 0.5 MG/2.5 ML AMPUL.NEB NEB SCH ×3 (03:23→11:10)
[2022-07-30 04:00] VITALS: BP 141/84
--- NOTE | 2022-07-30 06:59 | NUR ---
CUSTOMER CARE CONSULTANT CLOSING NOTES - PATIENT SLEEPING, EASY TO AROUSE. A/O X4. ABLE TO VERBALIZE NEEDS. NO ACUTE DISTRESS THROUGHOUT THE NIGHT. NO SOB OR , ON O2 AT 4LPM VIA NASAL CANULA. NO C/O PAIN AT THIS TIME. AFEBRILE. ON TELE MONITOR READING SINUS RHYTHM WITH PAC AND PVC AT 91 BPM. LEFT UPPER ARM MIDLINE INTACT, PATENT AND FLUSHING. ALL DUE MEDS GIVEN AND NEEDS ATTENDED. PERINEAL CARE RENDERED. BRUISING ON THE LEFT SIDE OF THE WAIST NOTED. STILL REFUSING MOST OF HER TREATMENTS. SAFETY PRECAUTIONS MAINTAINED. WILL ENDORSE TO NEXT SHIFT FOR [facility].
--- NOTE | 2022-07-30 07:25 | NUR ---
RN OPENING NOTE PT RECEIVED IN BED ON 4L NC O2 SAT 94%. PT IS A/OX2-3 AND ON TELE MONITOR 80 - 90s. PT IS ON PUREE DIET. IV ACCESS L UA MIDLINE AND R FA INFUSING WITH NS @70ML/HR. BED IS LOCKED IN LOWEST POSITION X2 BED RAILS UP CALL [facility] IS WITHIN REACH AND ALL HOSPITAL SAFETY MEASURES ARE IN PLACE. WILL CONTINUE TO MONITOR THIS SHIFT.
[2022-07-30] MEDS: ENSURE ENLIVE 237 ML LIQUID (VANILLA) PO SCH (07:55)
[2022-07-30] MEDS: methylPREDNISolone SOD SUCC 125 MG/2ML VIAL IV SCH (07:57)
[2022-07-30 08:00] VITALS: BP 136/84
[2022-07-30] MEDS ORDERED: ARIPIPRAZOLE 5 MG TABLET PO SCH (08:00)
--- NOTE | 2022-07-30 08:00 | NUR ---
RN NOTE PT REFUSED BREAKFAST
--- NOTE | 2022-07-30 10:19 | NUR ---
RN NOTE: COVID ANTIGEN COVID ANTIGEN TEST DONE AT THIS TIME AND DROPPED OFF AT LAB
[2022-07-30] MEDS: LEVOFLOXACIN (250MG) 250 MG TABLET PO SCH (10:50)
--- NOTE | 2022-07-30 10:51 | NUR ---
RN NOTE: IV FLUIDS PT REFUSES IV FLUIDS
[2022-07-30 12:00] VITALS: BP 132/84
--- NOTE | 2022-07-30 13:35 | NUR ---
RN NOTE: [facility] CALLED [facility] AND GAVE REPORT TO MARI. [facility] IS AT BEDSIDE TO DIPLOMATIC INTERPRETER/TRANSLATOR PATIENT AT THIS TIME.
--- NOTE | 2022-07-30 14:01 | NUR ---
RN NOTE: DC PT DC'D TO [facility]. DC INSTRUCTIONS GIVEN TO MARI AT [facility] AND VERBALIZED UNDERSTANDING. ALL BELONGINGS SENT BACK WITH PT AND PT RECEIVED HER WALLET WHICH WAS IN [facility]. BOTH IV ACCESS REMOVED AND WERE COMPLETE AND INTACT; NO COMPLICATIONS NOTED. REPORT ALREADY GIVEN TO RECEIVING FACILITY. PT ENDORSED TO [id number].
== END 2022-07-30 14:44 | DRG 208 ==
LOC: ER 13:30 → ICU 16:50 → TELE-TD 07-24 17:45 → TELE1 07-27 12:51
PROVIDERS: ADMIT Internal Medicine; ATTEND Internal Medicine
PROC: 5A09357 Assistance with Respiratory Ventilation, Less than 24 Consecutive Hours, Continuous Positive Airway Pressure (ICD-10-PCS; 2022-07-20)
PROC: 5A1945Z Respiratory Ventilation, 24-96 Consecutive Hours (ICD-10-PCS; principal; 2022-07-21)
PROC: 0BH17EZ Insertion of Endotracheal Airway into Trachea, Via Natural or Artificial Opening (ICD-10-PCS; 2022-07-21)
PROC: 05HA33Z Insertion of Infusion Device into Left Brachial Vein, Percutaneous Approach (ICD-10-PCS; 2022-07-21)
DX: J44.1 Chronic obstructive pulmonary disease with (acute) exacerbation (principal); J96.22 Acute and chronic respiratory failure with hypercapnia; G93.41 Metabolic encephalopathy; J96.21 Acute and chronic respiratory failure with hypoxia; J45.901 Unspecified asthma with (acute) exacerbation; E22.2 Syndrome of inappropriate secretion of antidiuretic hormone; E87.4 Mixed disorder of acid-base balance; F05 Delirium due to known physiological condition; Z91.199 Patient's noncompliance with other medical treatment and regimen due to unspecified reason; Z20.822 Contact with and (suspected) exposure to COVID-19; E78.5 Hyperlipidemia, unspecified; E86.1 Hypovolemia; E87.6 Hypokalemia; F20.9 Schizophrenia, unspecified; Z79.899 Other long term (current) drug therapy
CPT/HCPCS: 31720; 36410; 36415; 36600; 71045-TC; 76770-TC; 80048-TC; 80053-TC; 80076-TC; 82803-TC; 82962-TC; 83735-TC; 83880; 84100-TC; 84484-TC; 85025-TC; 87081-TC; 92526; 92611-TC; 93307-TC; 94002-TC; 94003-TC; 94799-TC; A4223; C9803; G0378; J1644; J1956; J2370; J2930; J3105; J3475; J3480; J3490; J7030; J7040; J7042; J7050; J7070